=== PATIENT | female | born 1975 | race Caucasian/White ===

== ENCOUNTER 2018-01-07 05:14 | Observation (INO) | payer OTHER, SELFPAY ==
[2018-01-07] VITALS (10 sets, daily range): BP systolic 140–165; BP diastolic 79–100; PULSE 61–72; RESP 16–18; TEMP 36.7–36.8; O2SAT 98–100; BMI 29.5
--- NOTE | 2018-01-07 06:52 | EKG12_ITS ---
Test Reason : CHEST PAIN Blood Pressure : / mmHG Vent. Rate : 055 BPM Atrial Rate : 055 BPM P-R Int : 154 ms QRS Dur : 090 ms QT Int : 438 ms P-R-T Axes : 049 051 037 degrees QTc Int : 419 ms Sinus bradycardia Otherwise normal ECG When compared with ECG of 16-FEB-2016 04:32, No significant change was found Confirmed by ARTURO STINSON, YAJAIRA ([id number]), loan expeditor SARA SANCHES ([id number]) on 01/10/2018 2:43:05 PM Referred By: HMEA Confirmed By:YAJAIRA MORRIS MD
--- NOTE | 2018-01-07 06:55 | NURSING ---
Present in room during Dr. Pickering's initial exam with patient. present in room. After MD and I left room, pulled me aside in hallway and stated patient was kicking him out of room and asked for his cell phone number to be left,
--- NOTE | 2018-01-07 06:58 | PCM.HP.STD ---
Problem List (1) Chest pain Status: Acute (2) Hypertension Status: Acute History of Present Illness Date of Admission: 01/07/18 Chief Complaint: Chest pain The patient is a 42 year old female w/ h/o ADHD, DDD, endometriosis and HTN admitted for chest pain. She has been having intermittent chest pain all day yesterday. Chest pain is substernal and pressure-like, as if an elephant was sitting on her chest. Pain would last for minutes. Pain is not associated with exertion. Pain would radiate to her back and down her left arm. Pain is associated with dyspnea, nausea and diaphoresis. Nothing makes it better or worse. The intensity and frequency of the pain have increased. Her father had a NH at 44. She smokes 1 pack / day. Past Medical History Past Medical History (Chronic Problems): Chronic Problems Depressed (Chronic) ADD (attention deficit disorder) (Chronic) Allergies sertraline HCl [From Zoloft] Allergy (Severe, Verified 03/20/17 09:47) Angioedema shellfish derived Allergy (Severe, Verified 03/20/17 09:47) Angioedema latex Allergy (Verified 03/20/17 09:47) Rash adhesive tape Adverse Reaction (Verified 03/20/17 09:47) Rash atenolol Adverse Reaction (Verified 03/20/17 09:47) Other morphine Adverse Reaction (Verified 03/20/17 09:47) Low blood pressure Home Medications: Ambulatory Orders Medication Instructions Recorded Acetaminophen [Tylenol] 500 mg PO Q4H PRN PRN 01/19/17 Estrogens, Conjugated [Premarin] 1.25 mg PO DAILY 01/19/17 Amlodipine [Norvasc] 10 mg PO DAILY 03/13/17 Methylphenidate HCl [Concerta] 36 mg PO BID PRN 03/13/17 Cefadroxil [Duricef] 500 mg PO BID #20 capsule 03/15/17 Ciprofloxacin [Cipro] 500 mg PO BID #6 tablet 03/22/17 Hydrocodone Bitart/Apap 5-325 1 tablet PO Q4H PRN PRN #20 tablet 03/22/17 [[place] 5MG-325MG] Surgical History: cholecystectomy, hysterectomy, - - Neck and back fusion, left bunionectomy Psychiatric History: Anxiety DIRECTOR OF DIVERSITY AND INCLUSION History: No pertinent DIRECTOR OF DIVERSITY AND INCLUSION history Smoking Status: Current every day smoker - *Family History Maternal History Items: No pertinent history Paternal History Items: Diabetes, Heart Disease, Stroke Review of Systems Constitutional: Denies: Chills, Fever, Weight Change HEENT: Denies: Head Aches, Sinus Congestion, Sinus Drainage Cardiovascular: Reports: Chest Pain, Chest Pressure, Heaviness, Palpitations Respiratory: Denies: Cough, Shortness of breath at rest, Sputum production Gastrointestinal: Denies: Abdominal Pain, Nausea, Vomiting Genitourinary: Denies: Dysuria Musculoskeletal: Denies: Joint Pain, Joint Tenderness Skin: Denies: Rash, Wounds Neurological: Denies: Numbness, Tingling, Focal weakness Psychiatric: Denies: Anxiety, Depression, Homicidal Ideations, Suicidal Ideations Hematologic/ Lymphatic: Denies: Easy Bruising, Easy Bleeding VTE Information - Inpt Only VTE Present on Admission: No VTE Mechan Device Prophylaxis: SCD's VTE Pharm Prophylaxis ordered?: Yes Patient Problems: Active and Suspected Problems Chest pain (Acute) - Physical Exam General: Alert, Oriented x3, Cooperative HEENT: Atraumatic, PERRLA, EOMI, Normocephalic Neck: Supple, No JVD, Negative Carotid Bruits Lungs: Clear to auscultation, Normal air movement Cardiovascular: Regular rate, No murmurs Abdomen: Bowel Sounds Present, Soft, Non Tender Extremities: No edema, Capillary Refill Less than 3 Seconds Skin: No rashes, No breakdown Musculoskeletal: No Tenderness to Palpation of Joints or Extremities Neurological: Cranial nerves II-XII grossly intact Psych/Mental Status: Normal Affect, Appropriate Vital Signs Temp Pulse Resp BP Pulse Ox 98.3 F 63 16 142/92 H 98 01/07/18 05:24 01/07/18 05:44 01/07/18 05:24 01/07/18 05:25 01/07/18 05:24 Oxygen Delivery Method Room Air Weight: 75.5 kg Body Mass Index (BMI) 29.5 Finger Stick Blood Glucose 86 Assessment/Plan Active and Suspected Problems Chest pain (Acute) 42 year old female w/ h/o ADHD, DDD, endometriosis and HTN admitted for chest pain. 1) Chest pain: Heart score 5 Initial EKG at [facility] disclosed T-wave inversion in III, aVR and V1 when her SBP was in the 220s. However repeat EKG was wnl, w/ resolution of T-wave inversion when SBP was in the 140s. First trop was negative. Will get serial trops. Repeat EKG. Will also get ECHO and stress test in AM. Will start metoprolol, atorvastatin, and lisinopril. C/w ASA. Drug screen. If possible, will consult Dr. Parra who is her cards. 2) HTN: SBP in the 140s. Start metoprolol and lisinopril. Monitor. 3) Smoking cessation: She smokes 1 pack/day. Education done. 4) Prophylaxis: SCD / heparin.
--- NOTE | 2018-01-07 07:07 | HP.PCM_ITS ---
Problem List (1) Chest pain Status: Acute (2) Hypertension Status: Acute History of Present Illness Date of Admission: 01/07/18 Chief Complaint: Chest pain The patient is a 42 year old female w/ h/o ADHD, DDD, endometriosis and HTN admitted for chest pain. She has been having intermittent chest pain all day yesterday. Chest pain is substernal and pressure-like, as if an elephant was sitting on her chest. Pain would last for minutes. Pain is not associated with exertion. Pain would radiate to her back and down her left arm. Pain is associated with dyspnea, nausea and diaphoresis. Nothing makes it better or worse. The intensity and frequency of the pain have increased. Her father had a NV at 44. She smokes 1 pack / day. Past Medical History Past Medical History (Chronic Problems): Chronic Problems Depressed (Chronic) ADD (attention deficit disorder) (Chronic) Allergies sertraline HCl [From Zoloft] Allergy (Severe, Verified 03/20/17 09:47) Angioedema shellfish derived Allergy (Severe, Verified 03/20/17 09:47) Angioedema latex Allergy (Verified 03/20/17 09:47) Rash adhesive tape Adverse Reaction (Verified 03/20/17 09:47) Rash atenolol Adverse Reaction (Verified 03/20/17 09:47) Other morphine Adverse Reaction (Verified 03/20/17 09:47) Low blood pressure Home Medications: Ambulatory Orders Medication Instructions Recorded Acetaminophen [Tylenol] 500 mg PO Q4H PRN PRN 01/19/17 Estrogens, Conjugated [Premarin] 1.25 mg PO DAILY 01/19/17 Amlodipine [Norvasc] 10 mg PO DAILY 03/13/17 Methylphenidate HCl [Concerta] 36 mg PO BID PRN 03/13/17 Cefadroxil [Duricef] 500 mg PO BID #20 capsule 03/15/17 Ciprofloxacin [Cipro] 500 mg PO BID #6 tablet 03/22/17 Hydrocodone Bitart/Apap 5-325 1 tablet PO Q4H PRN PRN #20 tablet 03/22/17 [[place] 5MG-325MG] Surgical History: cholecystectomy, hysterectomy, - - Neck and back fusion, left bunionectomy Psychiatric History: Anxiety 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 MACHINE 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 history Smoking Status: Current every day smoker - *Family History Maternal History Items: No pertinent history Paternal History Items: Diabetes, Heart Disease, Stroke Review of Systems Constitutional: Denies: Chills, Fever, Weight Change HEENT: Denies: Head Aches, Sinus Congestion, Sinus Drainage Cardiovascular: Reports: Chest Pain, Chest Pressure, Heaviness, Palpitations Respiratory: Denies: Cough, Shortness of breath at rest, Sputum production Gastrointestinal: Denies: Abdominal Pain, Nausea, Vomiting Genitourinary: Denies: Dysuria Musculoskeletal: Denies: Joint Pain, Joint Tenderness Skin: Denies: Rash, Wounds Neurological: Denies: Numbness, Tingling, Focal weakness Psychiatric: Denies: Anxiety, Depression, Homicidal Ideations, Suicidal Ideations Hematologic/ Lymphatic: Denies: Easy Bruising, Easy Bleeding VTE Information - Inpt Only VTE Present on Admission: No VTE Mechan Device Prophylaxis: SCD's VTE Pharm Prophylaxis ordered?: Yes Patient Problems: Active and Suspected Problems Chest pain (Acute) - Physical Exam General: Alert, Oriented x3, Cooperative HEENT: Atraumatic, PERRLA, EOMI, Normocephalic Neck: Supple, No JVD, Negative Carotid Bruits Lungs: Clear to auscultation, Normal air movement Cardiovascular: Regular rate, No murmurs Abdomen: Bowel Sounds Present, Soft, Non Tender Extremities: No edema, Capillary Refill Less than 3 Seconds Skin: No rashes, No breakdown Musculoskeletal: No Tenderness to Palpation of Joints or Extremities Neurological: Cranial nerves II-XII grossly intact Psych/Mental Status: Normal Affect, Appropriate Vital Signs Temp Pulse Resp BP Pulse Ox 98.3 F 63 16 142/92 H 98 01/07/18 05:24 01/07/18 05:44 01/07/18 05:24 01/07/18 05:25 01/07/18 05:24 Oxygen Delivery Method Room Air Weight: 75.5 kg Body Mass Index (BMI) 29.5 Finger Stick Blood Glucose 86 Assessment/Plan Active and Suspected Problems Chest pain (Acute) 42 year old female w/ h/o ADHD, DDD, endometriosis and HTN admitted for chest pain. 1) Chest pain: Heart score 5 Initial EKG at [facility] disclosed T-wave inversion in III, aVR and V1 when her SBP was in the 220s. However repeat EKG was wnl, w/ resolution of T-wave inversion when SBP was in the 140s. First trop was negative. Will get serial trops. Repeat EKG. Will also get ECHO and stress test in AM. Will start metoprolol, atorvastatin, and lisinopril. C/w ASA. Drug screen. If possible, will consult Dr. Parra who is her cards. 2) HTN: SBP in the 140s. Start metoprolol and lisinopril. Monitor. 3) Smoking cessation: She smokes 1 pack/day. Education done. 4) Prophylaxis: SCD / heparin.
--- NOTE | 2018-01-07 07:07 | RAD_ITS ---
STUDY: X-RAY CHEST REASON FOR EXAM: Female, 42 years old. Chest pain TECHNIQUE: Single AP portable view of the chest. COMPARISON: 03/13/2017 FINDINGS: There are superimposed monitor leads. The lungs are clear and expanded. Mild bilateral blunting of the costophrenic angles. Normal size heart. Normal mediastinum and denny. Normal visualized pulmonary arteries. Normal visualized aortic arch and descending thoracic aorta. Normal visualized thoracic spine. Normal visualized ribs, clavicles, and shoulders. Remote lower cervical fusion. There is no demonstrated abnormality of the visualized soft tissue structures of the upper abdomen. RAD/Chest 1 View (Portable) IMPRESSION: Mild bilateral blunting of the costophrenic angles possible small pleural fluid/thickening. No pulmonary edema, congestive heart failure or confluent pneumonia. Electronically Signed: Arleth Funk MD at 9:22 EST , Service support ,
--- NOTE | 2018-01-07 07:08 | CT_ITS ---
STUDY: CT BRAIN WITHOUT CONTRAST REASON FOR EXAM: Female, 42 years old. Headache RADIATION DOSAGE (If Supplied By Facility): CTDIvol = ( 44.99 ) mGy, DLP = ( 779.24 ) mGycm TECHNIQUE: Transaxial CT imaging of the brain was performed without administration of intravenous contrast material. Multiplanar coronal and sagittal images were reformatted. Individualized dose optimization techniques were used for this CT. COMPARISON: CT brain noncontrast 02/15/2016. 07/07/2015. 06/03/2013. FINDINGS: Normal soft tissue structures. Normal calvarium. Normal size ventricles and extra-axial spaces for the patient's age. Normal white matter tracts of the cerebral hemispheres. Normal basal ganglia and thalami. Normal brainstem. Normal cerebellum. There is no intracranial hemorrhage. There are no findings of an acute ischemic infarction. Normal visualized paranasal sinuses. CT/Brain/Head without Contrast IMPRESSION: There is no acute intracranial pathology. There is no significant interval change. Electronically Signed: Arleth Funk MD at 9:28 EST , Service support ,
[2018-01-07 07:38] LABS: Absolute Lymphocyte Count 3.28 X10^3/ul (0.83-4.51); Absolute Neutrophil Count 4.8 X10^3/uL (2.0-7.7); Basophil# 0.04 X10^3/uL; Basophil% 0.4 % (0-1); Eosinophil# 0.18 X10^3/uL; Hematocrit 44.3 % (37-47); Hemoglobin 15.3 g/dl (12.0-15.0); Lymphocyte # 3.28 X10^3/ul (4.0); Lymphocyte % 35.9 % (19-41); Mean Corp Hgb Conc 34.5 g/gl (32-36); Mean Corpuscular Hgb 31.2 pg (27.0-32.0); Mean Corpuscular Volume 90.4 fL (81-99); Mean Platelet Vol. 10.5 fl (6.2-12.0); Monocyte# 0.78 X10^3/uL; Monocyte% 8.5 % (0-10); Neutrophil # 4.83 X10^3/uL (2.7-7.7); Platelet Count 232 K/mm3 (150-450); RBC Distribution Width CV 13.8 % (11.6-14.6); RBC Distribution Width SD 45.8 fl (35.1-43.9); White Blood Count 9.1 K/mm3 (4.4-11.0)
[2018-01-07 07:42] LABS: POSITIVE COUNT NO; POSITIVE DIFFERENTIAL NO; POSITIVE MORPHOLOGY NO
[2018-01-07 07:55] LABS: AST(SGOT) 16 U/L (15-37); Alanine Aminotransfer ALT/SGPT 15 U/L (13-56); Albumin, Serum 3.7 g/dL (3.2-5.0); Alkaline Phosphatase 62 U/L (45-117); Anion Gap 7 (5-15); BUN 11 mg/dL (7-18); BUN/Creat Ratio 13.4 RATIO (10-20); Calcium,Total 8.9 mg/dL (8.5-10.1); Chloride 103 mmol/L (98-107); Creatinine, Serum 0.82 mg/dL (0.55-1.02); EST Glomerular Filtration Rate 82 mL/min (>60); Est Glom Filt Rate - Afr Amer 99 mL/min (>60); Estimated Creatinine Clearance 75.44 ml/min; Globulin 3.7 g/dL (2.2-4.2); Glucose 98 mg/dL (74-106); Potassium 4.3 mmol/L (3.5-5.1); Protein, Total 7.4 g/dL (6.4-8.2); Sodium Level 138 mmol/L (136-145)
[2018-01-07] MEDS: Aspirin E.C. 81 MG Tablet PO (08:04)
[2018-01-07] MEDS: 0.9% NaCl Peripheral Flush Adult/Peds IV ×2 (08:57→12:04)
[2018-01-07] MEDS: Metoprolol Tartrate 25 MG Tablet 12.5 MG PO (09:54)
[2018-01-07] MEDS: Lisinopril 10 MG Tablet PO (09:57)
[2018-01-07 10:47] LABS: Amphetamine Urine VISTA NEGATIVE (<1000 ng/mL); Barbiturate Urine VISTA NEGATIVE (< 200 ng/mL); Benzodiazepine Urine VISTA NEGATIVE (< 200 ng/mL); Cocaine Urine VISTA NEGATIVE (< 300 ng/mL); Ecstacy Urine VISTA NEGATIVE (< 500 ng/mL); Methadone Urine VISTA NEGATIVE (< 300 ng/mL); PCP Urine VISTA NEGATIVE (< 25 ng/mL); THC Urine VISTA POSITIVE (< 50 ng/mL); Vista UDS pH Range 6
--- NOTE | 2018-01-07 11:19 | PCM.DC ---
- Discharge Diagnoses Current Active Problems: Current Active and Chronic Problems Chest pain (Acute) You will use the following diet at home:: No restrictions Your food should be the consistency of: Regular Your liquids should be the consistency of: Regular/Thin Discharge Activity: Return to Normal Activity Call your doctor if you observe: Fever of 101 or Higher, Shortness of breath, Chest pain Allergies/Adverse Reactions: Allergies sertraline HCl [From Zoloft] Allergy (Severe, Verified 03/20/17 09:47) Angioedema shellfish derived Allergy (Severe, Verified 03/20/17 09:47) Angioedema latex Allergy (Verified 03/20/17 09:47) Rash adhesive tape Adverse Reaction (Verified 03/20/17 09:47) Rash atenolol Adverse Reaction (Verified 03/20/17 09:47) Other morphine Adverse Reaction (Verified 03/20/17 09:47) Low blood pressure Medications to take at Discharge Acetaminophen [Tylenol] 500 mg PO Q4H PRN PRN 01/19/17 Methylphenidate HCl [Concerta] 36 mg PO BID PRN 03/13/17 Aspirin E.C. [Ecotrin] 81 mg PO DAILY@0800 tablet 01/07/18 Ibuprofen 800 mg PO TID PRN #1 tablet 01/07/18 Lisinopril [Zestril] 10 mg PO DAILY #30 tab 01/07/18 The following prescriptions were given: Lisinopril [Zestril] 10 mg PO DAILY #30 tab Ibuprofen 800 mg PO TID PRN #1 tablet PRN Reason: Pain Orders to be completed after discharge: Stress Test Regular [CVS] Time Frame: 2 Weeks, Location: None Selected Primary Care Physician: Kamini Garcia DO [Primary Care Provider] - Within 2 Weeks Proposed Discharge Date: 01/07/18
--- NOTE | 2018-01-07 11:20 | PCM.DC.SUM ---
Discharge Date and Diagnosis - Problem List Patient Problems: Active and Suspected Problems Chest pain (Acute) Date of Admission: 01/07/18 Date of Discharge: 01/07/18 - Primary Discharge Diagnosis Active and Suspected Problems Chest pain (Acute) - Secondary Discharge Diagnosis Chronic Problems Depressed (Chronic) ADD (attention deficit disorder) (Chronic) Hospital Course and Treatment Imaging Results: 01/07/18 07:07 Chest 1 View (Portable) [RAD] Routine 01/07/18 07:08 CT Head [Brain/Head without Contrast] [CT] Routine 01/08/18 05:55 Echo Complete [ECHO] AM (NON MEDS) Nuclear Stress Test - Chemical [NM] AM (NON MEDS) Operations: None, - - Exploratory laparoscopy, lysis of pelvic and abdominal adhesions and left salpingooophorectomy Procedures: None Summary of Care Provided: The patient is a 42 year old F presents with chest and back pain. Seen at [place] and sent to [facility]. Work up has been unremarkable. Exam significant for reproducbile chest and back pain. [place] to be musculoskeletal. Discussed with patient, outpt stress test. Patient to continue with aspirin until stress, if negative. Pt was hypertensive w systolic in 180s, given that she had a headache with it, i recommended treating her with lisinopril. [] Discharge Diet: No Restrictions Discharge Activity: Return to Normal Activity Call your doctor if you observe: Fever of 101 or Higher, Shortness of breath, Chest pain Home Medications: Medications to take at Discharge Acetaminophen [Tylenol] 500 mg PO Q4H PRN PRN 01/19/17 Methylphenidate HCl [Concerta] 36 mg PO BID PRN 03/13/17 Aspirin E.C. [Ecotrin] 81 mg PO DAILY@0800 tablet 01/07/18 Ibuprofen 800 mg PO TID PRN #1 tablet 01/07/18 Lisinopril [Zestril] 10 mg PO DAILY #30 tab 01/07/18 Following Prescrptions Were Given to Patient: Lisinopril [Zestril] 10 mg PO DAILY #30 tab Ibuprofen 800 mg PO TID PRN #1 tablet PRN Reason: Pain Other Amb Orders: Stress Test Regular [CVS] Time Frame: 2 Weeks, Location: None Selected Primary Care Physician: Kamini Garcia DO [Primary Care Provider] - Within 2 Weeks Disposition: Home Minutes spent on discharge:: 25 Patient Condition:: Good Meaningful Use Info Meaningful Use Diagnoses (Choose all that apply): None applicable Code Visit OBSV E&M: 68957 Observation care discharge
--- NOTE | 2018-01-07 11:24 | DS.PCM_ITS ---
Discharge Date and Diagnosis - Problem List Patient Problems: Active and Suspected Problems Chest pain (Acute) Date of Admission: 01/07/18 Date of Discharge: 01/07/18 - Primary Discharge Diagnosis Active and Suspected Problems Chest pain (Acute) - Secondary Discharge Diagnosis Chronic Problems Depressed (Chronic) ADD (attention deficit disorder) (Chronic) Hospital Course and Treatment Imaging Results: 01/07/18 07:07 Chest 1 View (Portable) [RAD] Routine 01/07/18 07:08 CT Head [Brain/Head without Contrast] [CT] Routine 01/08/18 05:55 Echo Complete [ECHO] AM (NON MEDS) Nuclear Stress Test - Chemical [NM] AM (NON MEDS) Operations: None, - - Exploratory laparoscopy, lysis of pelvic and abdominal adhesions and left salpingooophorectomy Procedures: None Summary of Care Provided: The patient is a 42 year old F presents with chest and back pain. Seen at [place] and sent to [facility]. Work up has been unremarkable. Exam significant for reproducbile chest and back pain. [place] to be musculoskeletal. Discussed with patient, outpt stress test. Patient to continue with aspirin until stress, if negative. Pt was hypertensive w systolic in 180s, given that she had a headache with it, i recommended treating her with lisinopril. [] Discharge Diet: No Restrictions Discharge Activity: Return to Normal Activity Call your doctor if you observe: Fever of 101 or Higher, Shortness of breath, Chest pain Home Medications: Medications to take at Discharge Acetaminophen [Tylenol] 500 mg PO Q4H PRN PRN 01/19/17 Methylphenidate HCl [Concerta] 36 mg PO BID PRN 03/13/17 Aspirin E.C. [Ecotrin] 81 mg PO DAILY@0800 tablet 01/07/18 Ibuprofen 800 mg PO TID PRN #1 tablet 01/07/18 Lisinopril [Zestril] 10 mg PO DAILY #30 tab 01/07/18 Following Prescrptions Were Given to Patient: Lisinopril [Zestril] 10 mg PO DAILY #30 tab Ibuprofen 800 mg PO TID PRN #1 tablet PRN Reason: Pain Other Amb Orders: Stress Test Regular [CVS] Time Frame: 2 Weeks, Location: None Selected Primary Care Physician: Kamini Garcia DO [Primary Care Provider] - Within 2 Weeks Disposition: Home Minutes spent on discharge:: 25 Patient Condition:: Good Meaningful Use Info Meaningful Use Diagnoses (Choose all that apply): None applicable Code Visit OBSV E&M: 43605 Observation care discharge
== END 2018-01-07 11:19 | disposition home or self-care (01) ==
PROVIDERS: Admitting Provider Internal Medicine; Family Provider Family Medicine; PCP Family Medicine
DX: R07.89 Other chest pain (principal); F90.9 Attention-deficit hyperactivity disorder, unspecified type; I10 Essential (primary) hypertension; F32.9 Major depressive disorder, single episode, unspecified; F17.200 Nicotine dependence, unspecified, uncomplicated; Z79.899 Other long term (current) drug therapy; Z82.49 Family history of ischemic heart disease and other diseases of the circulatory system; F41.9 Anxiety disorder, unspecified
CPT/HCPCS: 36415; 70450; 71045; 80053; 80307; 84484; 85025; 93005; 96374; 96376; 99406; A4216

== ENCOUNTER → 2018-03-05 15:49 | Outpatient (CLI) | payer OTHER, SELFPAY | PROVIDERS: Family Provider Family Medicine; PCP Family Medicine; Visit Provider Family Medicine | DX: N20.1 Calculus of ureter (principal); R31.9 Hematuria, unspecified | CPT/HCPCS: 87086 ==

== ENCOUNTER → 2018-03-08 12:42 | Outpatient (CLI) | payer OTHER, SELFPAY ==
--- NOTE | 2018-03-08 12:49 | RAD_ITS ---
STUDY: X-RAY - ABDOMEN/PELVIS REASON FOR EXAM: Female, 43 years old. Right lower abdominal pain, history of renal stones TECHNIQUE: Supine views of the abdomen and pelvis were obtained. COMPARISON: CT abdomen and pelvis from the same day FINDINGS: The lung bases were not imaged. There is an unremarkable bowel gas pattern. There is no demonstrated free abdominal air. There is no demonstrated abnormality of the major organs. There are small calcifications in the lower pelvis. The soft tissues are unremarkable. There are surgical changes in the lower lumbar spine. RAD/Abdomen Single View IMPRESSION: There are calcifications in the lower pelvis. A calcific density in the lower right pelvis just to the right of midline corresponds to a right UVJ stone seen on CT. The calcifications in the left pelvis corresponding to phleboliths on CT. Electronically Signed: Jenny Arce MD at 18:33 EDT Tel Direct: [phone], Service support ,
== END ==
PROVIDERS: Family Provider Family Medicine; PCP Family Medicine; Visit Provider Nurse Practitioner Adult Health
DX: R10.30 Lower abdominal pain, unspecified (principal); Z87.442 Personal history of urinary calculi
CPT/HCPCS: 74018

== ENCOUNTER → 2018-03-08 15:06 | Outpatient (CLI) | payer OTHER, SELFPAY ==
--- NOTE | 2018-03-08 15:14 | CT_ITS ---
STUDY: CT ABDOMEN AND PELVIS WITHOUT CONTRAST REASON FOR EXAM: Female, 43 years old. Hematuria. Right flank pain. RADIATION DOSAGE (If Supplied By Facility): CTDIvol = ( 10.28 ) mGy, DLP = ( 493.29 ) mGycm TECHNIQUE: Transaxial images were obtained from the dome of the diaphragm to the symphysis pubis without oral contrast, and without intravenous contrast. Sagittal and coronal images were reconstructed. Individualized dose optimization techniques were used for this CT. COMPARISON: March 14, 2017. FINDINGS: The visualized lung bases are unremarkable. The visualized portions of the heart are within normal limits. Normal liver. There are surgical clips in the gallbladder fossa consistent with a prior cholecystectomy. Normal spleen. Normal pancreas. Normal bilateral adrenal glands. There is 0.3 cm stone in the upper pole of the right kidney. There are 0.2 cm mid and lower pole stones of the left kidney. No hydronephrosis. Normal visualized stomach. Normal small intestine. Normal colon. The appendix is visualized and appears normal. Normal abdominal aorta. Normal inferior vena cava. Normal retroperitoneum. There is a 0.5 cm stone in the right side of the urinary bladder adjacent to the ureterovesical junction. There is absence of the uterus consistent with a prior hysterectomy. There is no free fluid in the abdomen or pelvis. Normal abdominal wall. Postoperative changes of the lumbar spine with hardware and stimulator device. CT/Abdomen/Pelvis without Cont IMPRESSION: Bilateral renal stones. Right ureterovesical junction stone. Electronically Signed: Wilbert Mcgregor MD at 16:55 EDT , Service support ,
== END ==
PROVIDERS: Family Provider Family Medicine; PCP Family Medicine; Visit Provider Nurse Practitioner Adult Health
DX: R31.9 Hematuria, unspecified (principal); R10.9 Unspecified abdominal pain; Z87.442 Personal history of urinary calculi
CPT/HCPCS: 74176

== ENCOUNTER 2018-05-08 16:00 | Outpatient (RCR) | payer OTHER, SELFPAY ==
--- NOTE | 2018-03-20 09:43 | HP.PTEVAL_ITS ---
Patient's Visit Information MARTINA PITTMAN is a 43 year old F referred to Physical Therapy by Out of Town Doctor with a diagnosis of Posterior Tib Tendon Transfer. Date of Evaluation: 03/20/18 Physical Therapist: Inge Vargas - Visit Plan Frequency: 2x /Week Duration: 4 Weeks Plan: Follow Protocol - Subjective Subjective: Long standing issues with left foot- see previous PT evaluations for complete history of previous surgeries. Last surgery January 18, 2018 in [place]- by Dr. Hdz and they performed a Posterior Tibial Tendon Transfer. WBAT in the boot Monday- has been on the knee scooter since then. Patient reports that the only thing that hurts is the bottom of the foot. No pain when sitting but the bottom foot when she puts pressure on it 8/10 by the end of the day and she needs to be back on the knee walker. Describes pain as dull and achy like a bruise. No radiating pain. No N/t in the toes. Sleep: not disturbed- does not wear the boot at night. Took weight bearing x-rays on Monday- he is happy with how everything looks. Goes back at the end of April. Put an insert in her boot to help with cushion. PMHx: none Meds: ADHD med and aleve. 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 - Objective Posture: FH, RS. Gait: antalgic secondary to Cam walker and decreased stance time on the right LE. Balance: WS onto the right but does not SLS and reports no pain. Girth: Figure 8: 47.5 cm Mall: 23.5 cm Mets: 20cm. ROM: DF: 10 degrees, PF: 50 degrees, Inv: 30 degrees, Ever: 20 degrees. Strength: 4+/5. Flex: Gastroc: mod Soleus: mod - Goals Goal 1:: Patient will be I with HEP and progression Goal Time Frame: 4-6 Weeks Goal 2:: Patient will ambulate >300 feet with a normalized gait pattern and no boot Goal Time Frame: 4-6 Weeks Goal 3:: Patient will report 2/10 pain for 1 week Goal Time Frame: 4-6 Weeks - Rehabilitation Potential Physical Therapy Diagnosis: Patient presents with hypomobility- she has decreased strength and muscular endurance leading to abnormal gait and decreasd ability to perform ADL's Rehabilitation Potential: Good - Anticipated Interventions For the Purpose of:: To improve ability to perform ADL's Therapeutic Exercise to Include: Strength training, Endurance training, Balance training, Body mechanics, Postural training, Flexibilty training, Gait and locomotor training, Dynamic Lumbar Stabilization For the Purpose of:: To improve muscle performance and motor function TENS: Yes Cryotherapy (ice pack, ice massage): Yes Thermo therapy (hot pack): Yes For the Purpose of:: To decrease pain Thank you for the opportunity to evaluate your patient. For Medicare and Medicare HMO plans, please review the plan of care and approve it. It will need to be FAXED BACK to us at [phone] for Medicare purposes. Please let me know if there are questions or concerns regarding this plan of care. Physician Signature: Date:
--- NOTE | 2018-04-24 20:17 | HP.PTREVAL_ITS ---
Out of Town Doctor, It has been my pleasure to treat MARTINA PITTMAN over the last 7 visits for Posterior Tib Tendon Transfer. Please see the progress note below for an update on the physical therapy plan of care! Subjective: Patient reports that she is better and each day gets easier and easier. She is still challenged and has pain with any pivoting and standing for long periods of time. Pain level at its worst: 5/10 when she overdoes it but can now get to be painfree if she gets off of it. She goes back to the [facility] May 07. She feels 60% better but still feels that she needs strength and endurance in the ankle. Objective/Function: Posture: good throughout. Gait: slightly antalgic- tennis shoe on both feet- decreased stance and poor heel/toe pattern on the left. SLS : 10 sec with increased muscle activation. HR/TR: able but WS to the rigth. Palpation:tender along achilles. ROM: DF: 10 degrees, PF: 50 degrees, Inv: 30 degrees, Ever: 10 degrees with pain. Strength: 4/5 t/o ankle -- 5/5 in knee Plan Plan: Continue with POC 2x a week for 4 weeks. Goals Goal 1:: Patient will be I with HEP and progression Goal Time Frame: 4-6 Weeks Goal Progress: Progressing Goal 2:: Patient will ambulate >300 feet with a normalized gait pattern and no boot Goal Time Frame: 4-6 Weeks Goal Progress: Progressing Goal 3:: Patient will report 2/10 pain for 1 week Goal Time Frame: 4-6 Weeks Goal Progress: Progressing Anticipated Interventions For the Purpose of:: To improve ability to perform ADL's Therapeutic Exercise to Include: Strength training, Endurance training, Balance training, Body mechanics, Postural training, Flexibilty training, Gait and locomotor training, Dynamic Lumbar Stabilization For the Purpose of:: To improve muscle performance and motor function TENS: Yes Cryotherapy (ice pack, ice massage): Yes Thermo therapy (hot pack): Yes For the Purpose of:: To decrease pain Please do not hesitate to contact me at [phone] by phone or Fax: if you have questions or concerns regarding this new plan of care! Sincerely, Inge Vargas
--- NOTE | 2018-08-06 16:28 | HP.PT.NRP ---
HP - Discharge Summary (1) - Patient Information MARTINA PITTMAN was seen in my office for initial evaluation on 03/20/18. The following Plan of Care was established for this patient: Initial Frequency: 2x /Week Initial Duration: 4 Weeks - Anticipated Interventions For the Purpose of:: To improve ability to perform ADL's Therapeutic Exercise to Include: Strength training, Endurance training, Balance training, Body mechanics, Postural training, Flexibilty training, Gait and locomotor training, Dynamic Lumbar Stabilization For the Purpose of:: To improve muscle performance and motor function TENS: Yes Cryotherapy (ice pack, ice massage): Yes Thermo therapy (hot pack): Yes For the Purpose of:: To decrease pain This patient was last seen in our office . Pertinent comments regarding their Physical therapy will appear below: Patient has not attended physical therapy in over 8 weeks and is appropriate for d/c. At this point I will be discontinuing this patient from physical therapy. I would be happy to see this patient again in the future if found appropriate by the physician. Thank you! Inge Vargas
== END 2018-05-08 19:00 | disposition home or self-care (01) ==
LOC: PT 16:00
PROVIDERS: Family Provider Family Medicine; PCP Family Medicine
DX: M19.072 Primary osteoarthritis, left ankle and foot (principal); M21.072 Valgus deformity, not elsewhere classified, left ankle; M76.822 Posterior tibial tendinitis, left leg
CPT/HCPCS: 97110; 97162; 97530

== ENCOUNTER → 2019-01-16 10:52 | Outpatient (CLI) | payer OTHER, SELFPAY ==
[2018-01-07 05:23] VITALS: BMI 29.5
[2019-01-16 11:00] LABS: Mucous, Urine 0 SEEN /hpf (<or=2+)
--- NOTE | 2019-01-16 11:10 | RAD_ITS ---
STUDY: X-RAY - ABDOMEN/PELVIS REASON FOR EXAM: Female, 44 years old. Possible stones. In the mid abdomen and along the sides. History of stones last year. Stent last year. Back pain. History of lumbar fusion. TECHNIQUE: KUB COMPARISON: None. FINDINGS: There is a tiny calculus in the inferior pole calyx of the left kidney. There is a small calculus in the superior pole calyx of the right kidney. There is no visible ureteral calculus. Stable left pelvic phlebolith. No other acute intra-abdominal process is evident. There is mild lumbar scoliosis and low lumbar posterior nat and pedicle screw fixation with laminectomy L4-L5. Neurostimulator device present. Unremarkable bowel pattern. RAD/Abdomen Single View IMPRESSION: Retained calculi of the kidneys, calyceal position, nonobstructing concordant with prior CT scan without evidence of ureteral calculus. Electronically Signed: Bashir Ashton MD at 18:25 EST Tel , Service support ,
[2019-01-16 11:36] LABS: Absolute Lymphocyte Count 2.63 X10^3/ul (0.83-4.51); Absolute Neutrophil Count 4.4 X10^3/uL (2.0-7.7); Basophil# 0.03 X10^3/uL; Basophil% 0.4 % (0-1); Eosinophil# 0.11 X10^3/uL; Eosinophils% 1.4 % (0-5); Hematocrit 46.5 % (37-47); Lymphocyte # 2.63 X10^3/ul (4.0); Lymphocyte % 33.3 % (19-41); Mean Corp Hgb Conc 32.3 g/gl (32-36); Mean Corpuscular Hgb 30.1 pg (27.0-32.0); Mean Corpuscular Volume 93.4 fL (81-99); Mean Platelet Vol. 10.6 fl (6.2-12.0); Monocyte# 0.69 X10^3/uL; Monocyte% 8.7 % (0-10); Neutrophil # 4.44 X10^3/uL (2.7-7.7); Neutrophil % 56.2 % (47-70); Platelet Count 230 K/mm3 (150-450); RBC Distribution Width CV 13.4 % (11.6-14.6); RBC Distribution Width SD 44.5 fl (35.1-43.9); Red Blood Count 4.98 M/mm3 (4.2-5.4); White Blood Count 7.9 K/mm3 (4.4-11.0)
[2019-01-16 11:37] LABS: Color, Urine Yellow (Yellow); Glucose, Dipstick Normal (Normal); Ketone-Dipstick Negative (Negative); Leukocyte Esterase-Dipstick 25 /ul (Negative); Nitrite-Dipstick Negative (Negative); Occult Blood-Urine 10 /ul (Negative); POSITIVE COUNT NO; POSITIVE DIFFERENTIAL NO; POSITIVE MORPHOLOGY NO; Protein-Dipstick Negative (Negative); Urine Bilirubin Dipstick Negative (Negative); Urine Clarity Sl. Cloudy (Clear); Urine Urobilinogen Normal (Normal)
[2019-01-16 11:47] LABS: Bacteria 1+ /hpf (None Seen); Red Blood Cells-Urine 0-5 SEEN /hpf (0-5); Squamous Epithelial Cells - UA 0-5 SEEN /hpf (5-10); White Blood Cells 0-5 SEEN /hpf (0-5)
[2019-01-16 12:01] LABS: AST(SGOT) 17 U/L (15-37); Alanine Aminotransfer ALT/SGPT 20 U/L (13-56); Albumin, Serum 3.8 g/dL (3.2-5.0); Alkaline Phosphatase 61 U/L (45-117); Anion Gap 6 (5-15); BUN 9 mg/dL (7-18); BUN/Creat Ratio 11.4 RATIO (10-20); Calcium,Total 8.6 mg/dL (8.5-10.1); Chloride 102 mmol/L (98-107); Creatinine, Serum 0.79 mg/dL (0.55-1.02); EST Glomerular Filtration Rate 85 mL/min (>60); Est Glom Filt Rate - Afr Amer 103 mL/min (>60); Globulin 3.9 g/dL (2.2-4.2); Glucose 84 mg/dL (74-106); Lipase 86 U/L (73-393); Potassium 3.9 mmol/L (3.5-5.1); Protein, Total 7.7 g/dL (6.4-8.2); Sodium Level 136 mmol/L (136-145)
== END ==
PROVIDERS: Family Provider Family Medicine; PCP Family Medicine; Referring Provider Family Medicine; Visit Provider Family Medicine
DX: R10.9 Unspecified abdominal pain (principal); M54.9 Dorsalgia, unspecified
CPT/HCPCS: 36415; 74018; 80053; 81001; 83690; 85025